=== PATIENT | female | born 1975 | race Caucasian/White ===

== ENCOUNTER 2017-03-23 15:30 | Inpatient (IN) | payer OTHER ==
[~2017-03-23] VITALS: Ht 165.1 cm; Wt 86.2 kg
[2017-03-29] MEDS ORDERED: METFORMIN HCL500 MG PO (13:34)
[2017-03-29] MEDS ORDERED: ATORVASTATIN CA10 MG PO (13:35)
== END 2017-10-08 12:55 | disposition home or self-care (01) | DRG 743 ==
LOC: SURH 03-31 06:15 → O/R 03-31 06:15 → SURH 03-31 10:30 → OB/GYN 10-06 05:49 → O/R 10-06 05:49 → OB/GYN 10-06 16:14
PROC: 0UT50ZZ Resection of Right Fallopian Tube, Open Approach (ICD-10-PCS; principal; 2017-10-06)
PROC: 0DNW0ZZ Release Peritoneum, Open Approach (ICD-10-PCS; 2017-10-06)
PROC: 0UT00ZZ Resection of Right Ovary, Open Approach (ICD-10-PCS; 2017-10-06)
PROC: 0TN60ZZ Release Right Ureter, Open Approach (ICD-10-PCS; 2017-10-06)
DX: N80.1 Endometriosis of ovary (principal); N80.5 Endometriosis of intestine; N80.3 Endometriosis of pelvic peritoneum; E78.4 Other hyperlipidemia; N73.6 Female pelvic peritoneal adhesions (postinfective); E11.9 Type 2 diabetes mellitus without complications